=== PATIENT | female | born 1985 | race Caucasian/White ===

== ENCOUNTER 2021-03-03 19:26 | Emergency (ER) | payer OTHER, SELFPAY ==
[2021-03-03 19:30] VITALS: BP 141/95; PULSE 98; RESP 18; TEMP 36.6; O2SAT 100
--- NOTE | 2021-03-03 19:39 | ED.EAR ---
HPI - Ear Problem General Chief complaint: Ear Stated complaint: Ear Pain Time Seen by Provider: 03/03/21 19:39 Source: patient and RN notes reviewed History of Present Illness HPI Narrative: Patient is a 35-year-old female who presents the urgent care with complaints of muffled hearing and left ear pain. Patient states that she does have a bad tooth on the left upper and lower which could be relating to some of the pain. Patient states that she is broken the teeth many moons ago and has not gotten them repaired. Patient denies of any fevers but states she has had some chills. States that she has been taking Tylenol and ibuprofen for the pain. Denies of any nausea or vomiting or drainage from the ear. No other acute complaints. No acute distress noted. Patient aware of the plan of care. Some parts of this dictation were generated by voice recognition software and may contain typographical and/or grammatical inaccuracies. Related Data Home Medications Medication Instructions Recorded Confirmed buspirone [BuSpar] 30 mg PO BID 03/03/21 03/03/21 lamotrigine [Lamictal] 100 mg PO BID 03/03/21 03/03/21 methadone 140 mg PO BID 03/03/21 03/03/21 Allergies Allergy/AdvReac Type Severity Reaction Status Date / Time No Known Allergies Allergy Verified 03/03/21 19:37 Review of Systems Review of Systems: Narrative: CONSTITUTIONAL: Denies fever, chills, or sweats. EYES: Denies visual changes, redness, or discharge. ENT: Reports of painful upper and left tooth ache and left otalgia with decreased hearing CARDIOVASCULAR: Denies chest pain, palpitations, or edema. RESPIRATORY: Denies cough or dyspnea. GASTROINTESTINAL: Denies abdominal pain, nausea, vomiting, or diarrhea. GENITOURINARY: Denies dysuria or hematuria. SKIN: Denies rash or itching. MUSCULOSKELETAL: Denies back pain, joint pain, or myalgia. NEUROLOGIC: Denies headache, numbness, or weakness. All other systems reviewed are negative, except as documented in HPI. PMFSH Comments At the time of my signature, I reviewed and agree with the nursing past medical, surgical, social, and family history. There is no relevant family history pertinent to the patient complaint. Exam Narrative: Exam Narrative: GENERAL: This is a well-nourished, well-developed patient, in no apparent distress. HEAD: normocephalic, atraumatic. EYES: PERRL. Sclera clear/white. Vision is grossly intact. EARS: External ears normal, auditory canals clear and without drainage, right TMs normal without perforation. Unable to visualize left TM due to cerumen impaction hearing grossly intact. NOSE: External nose normal with no obvious nasal discharge, nares without redness, no rhinorrhea. THROAT: Mucous membranes moist, posterior pharynx clear. DENTAL: Left lower first molar with mild erythema/dental abscess and avulsed cusp. Left upper first premolar was large notable caries NECK: Neck supple, non-tender without lymphadenopathy, masses or thyromegaly. CARDIOVASCULAR: Regular rate and rhythm without murmurs, gallops, or rubs. RESPIRATORY: Clear to auscultation. Breath sounds equal bilaterally. No wheezes, rales, or rhonchi. SKIN: warm, intact with no suspicious lesions or rash, good texture and turgor. NEURO: awake, alert, and oriented to person, place and time. There were no obvious focal neurologic abnormalities. EXTREMITIES: No clubbing, cyanosis, or edema. Course Vital Signs Vital signs: Vital Signs Temperature 97.8 F 03/03/21 19:30 Pulse Rate 98 03/03/21 19:30 Respiratory Rate 18 03/03/21 19:30 Blood Pressure 141/95 H 03/03/21 19:30 Pulse Oximetry 100 03/03/21 19:30 Temperature 97.8 F 03/03/21 19:30 Pulse Rate 98 03/03/21 19:30 Respiratory Rate 18 03/03/21 19:30 Blood Pressure 141/95 H 03/03/21 19:30 Pulse Oximetry 100 03/03/21 19:30 Reviewed-patient is informed that they may have pre-hypertension or hypertension based on a blood pressure reading in the department. I
== END 2021-03-03 19:55 | disposition home or self-care (01) ==
PROVIDERS: Emergency Provider Nurse Practitioner Family
DX: K04.7 Periapical abscess without sinus (principal); H61.22 Impacted cerumen, left ear; F41.9 Anxiety disorder, unspecified; F31.9 Bipolar disorder, unspecified
CPT/HCPCS: 69209; 99213; G0463

== ENCOUNTER 2024-12-23 12:34 | Emergency (ER) | payer OTHER, SELFPAY ==
[2024-12-23 12:46] VITALS: BP 153/85; PULSE 90; RESP 16; TEMP 37.1; O2SAT 99
--- OUTSIDE RECORDS SUMMARY | 2024-12-23 12:46 | XMS_ITS | Clinical Summary ---
Author Organization [facility] Address [address] [place] [address] Phone Care Team Providers Care Wound Care Specialist Name Role Phone Provider, None Primary Care Provider Unavailabl e Allergies No known active allergies Medications divalproex (DEPAKOTE ER) 500 MG TABLET SR 24 HR Take 500 mg by mouth 2 times daily. Active methadone (DOLOPHINE) 10 MG Tablet Take 130 mg by mouth daily. Active busPIRone (BUSPAR) 15 MG Tablet TK 1 T PO TID 2 10/12/2018 Active ibuprofen (MOTRIN) 600 MG Tablet Take 1 Tab by mouth every 8 hours. 30 Tab 10/15/2018 Active lamoTRIgine (LAMICTAL) 150 MG Tablet Take 150 mg by mouth daily. Active Social History Tobacco Use Types Packs/Day Years Used Date Smoking Tobacco: Former Cigarettes Smokeless Tobacco: Never Alcohol Use Standard Drinks/Week Comments No 0 (1 standard drink = 0.6 oz pur e alcohol) Comments No Sex and Gender Information Value Date Recorded Sex Assigned at Not on file Legal Sex Female 8:42 PM CDT Gender Identity Not on file Sexual Orientation Not on file Last Filed Vital Signs Vital Sign Reading Time Taken Comments Blood Pressure 122/76 02/17/2020 11:45 PM CDT Pulse 74 02/17/2020 11:45 PM CDT Temperature 37.3 C (99.1 F) 02/17/2020 7:45 PM CDT Respiratory Rate 8 02/17/2020 11:45 PM CDT Oxygen Saturation 99% 02/17/2020 11:45 PM CDT Inhaled Oxygen Concentration - - Weight 95.3 kg (210 lb) 02/17/2020 7:45 PM CDT Height 172.7 cm (5' 8 ) 02/17/2020 7:45 PM CDT Body Mass Index 31.93 02/17/2020 7:45 PM CDT Plan of Treatment Health Maintenance Due Date Last Done Comments Hepatitis C Virus (HCV) Screening 1983 TdaP Immunization 1983 Hepatitis B Immunization (1 of 3 - 19+ 3-dose series) 2002 Pap Smear 2004 Cervical Cancer Screening (CCS) 2013 HPV/Cotest 2013 Discussion re Starting/Frequ ency of Mammograms 2023 Influenza Immunization (#1) 2024 SARS-COV-2 Immunization ( season) 2024 Respiratory Syncytial Virus (RSV) Immunization (Adult) (1 - 1-dose 75+ series) 2058 Meningococcal Immunization (ACWY) Aged Out No longer eligible based on patient's age to complete this topic Pneumococcal Immunization Combined Aged Out No longer eligible based on patient's age to complete this topic Rotavirus Immunization Aged Out No lo nger eligible based on patient's age to complete this topic Insurance MEDICAID [employer] Care Teams Wound Care Specialist Relationship Specialty Start Date End Date Provider, None [place] PCP - General 06/25/16
--- OUTSIDE RECORDS SUMMARY | 2024-12-23 12:46 | XMS_ITS | Clinical Summary ---
Author Organization [facility] Address [facility] [place] [address] Care Team Providers Care Auto Wrecker Name Role Phone None, Provider MD Primary Care Provider Unavaila ble Medications predniSONE (DELTASONE) 20 MG tablet Take 2 tablets (40 mg total) by mouth daily for 6 days. 12 tablet 12/17/2024 Active albuterol sulfate HFA 108 (90 Base) MCG/ACT inhaler Inhale 2 puffs into the lungs every 4 (four) hours as needed for Wheezing. Use with a spacer. 18 g 12/17/2024 Active Encounters Date Type Department Care Team Description 12/17/2024 1:50 PM PRINCIPAL ANDROID DEVELOPER - 12/17/2024 5:50 PM PRINCIPAL ANDROID DEVELOPER Emergency [facility] Emergency Room [address] [place] [address] Deanne Tripp MD Cough Discharge Disposition: Home or Self Care (Routine Discharge) 12/17/2024 Travel from Last 3 Months Social History Tobacco Use Types Packs/Day Years Used Date Smoking Tobacco: Never Assessed Comments Unknown Sex and Gender Information Value Date Recorded Sex Assigned at Female 12/17/2024 12:47 PM PRINCIPAL ANDROID DEVELOPER Legal Sex Female 2:06 PM CDT Gender Identity Not on file Sexual Orientation Not on file Last Filed Vital Signs Vital Sign Reading Time Taken Comments Blood Pressure 142/90 12/17/2024 1:55 PM PRINCIPAL ANDROID DEVELOPER Pulse 78 12/17/2024 1:55 PM PRINCIPAL ANDROID DEVELOPER Temperature 36.8 C (98.2 F) 12/17/2024 1:55 PM PRINCIPAL ANDROID DEVELOPER Respiratory Rate 12 12/17/2024 1:55 PM PRINCIPAL ANDROID DEVELOPER Oxygen Saturation 97% 12/17/2024 1:55 PM PRINCIPAL ANDROID DEVELOPER Inhaled Oxygen Concentration - - Weight 77.1 kg (170 lb) 12/17/2024 1:55 PM PRINCIPAL ANDROID DEVELOPER Height 172.7 cm (5' 8 ) 12/17/2024 1:55 PM PRINCIPAL ANDROID DEVELOPER Body Mass Index 25.85 12/17/2024 1:55 PM PRINCIPAL ANDROID DEVELOPER Plan of Treatment Health Maintenance Due Date Last Done Comments Cervical Cancer Screening Pa p Smear (Age 30 to 64) Every 3 Years 1983 Annual Physical 1986 Hepatitis C 2001 DTaP, Tdap and Td Vaccines ( 1 - Tdap) 2002 Hepatitis B Vaccines (1 of 3 - 19+ 3-dose series) 2002 Cervical Cancer Screening Pa p with HPV Testing (Age 30 to 64) Every 5 Years 2013 Cervical Cancer Screening with HPV 2013 Mammogram Screening 2023 COVID-19 Vaccine (2023-2 5 season) 2024 Influenza Adult (#1) 2024 HPV Vaccines Aged Out No longer eligi ble based on patient's age to complete this topic Meningococcal B Vaccine Aged Out No l onger eligible based on patient's age to complete this topic Meningococcal Vaccine Aged Out No james alexx eligible based on patient's age to complete this topic Pneumococcal Vaccine: Pediat rics (0 to 5 Years) and At-Risk Patients (6 to 64 Years) Aged Out No longer eligible b ased on patient's age to complete this topic RSV Immunizations Under 20 Months Aged Out No longer eligible based on patient's age to complete this topic Procedures Procedure Name Priority Date/Time Associated Diagnosis Comments XR CHEST PA+LAT STAT 12/17/2024 4:21 PM PRINCIPAL ANDROID DEVELOPER INFLUENZA A & B STAT 12/17/2024 4:14 PM PRINCIPAL ANDROID DEVELOPER CORONAVIRUS (COVID 19) STAT 12/17/2024 4:14 PM PRINCIPAL ANDROID DEVELOPER from Last 3 Months Results * XR CHEST PA+LAT (12/17/2024 4:21 PM PRINCIPAL ANDROID DEVELOPER) Anatomical Region Laterality Modality Chest Radiographic Gretel ging 12/17/2024 4:35 PM PRINCIPAL ANDROID DEVELOPER Impressions 12/17/2024 4:38 PM PRINCIPAL ANDROID DEVELOPER Impression: No acute findings. Referred By: Interpreted By: Len Shane MD, 12/17/2024 4:35 PM Narrative 12/17/2024 4:38 PM PRINCIPAL ANDROID DEVELOPER [address] [address] Examination: Chest 2 View History: Cough DATE/TIME: 12/17/2024 4:11 PM Comparison: None Technique: PA and lateral views were obtained. Findings: Heart size, mediastinal contours and pulmonary vasculature are within normal limits. No pulmonary consolidation, pleural effusion or pneumothorax. No acute osseous abnormality. Procedure Note Len Shane MD - 12/17/[address] [address] Examination: Chest 2 View History: Cough DATE/TIME: 12/17/2024 4:11 PM Comparison: None Technique: PA and lateral views were obtained. Findings: Heart size, mediastinal contours and pulmonary vasculature arewithin normal limits. No pulmonary consolidation, pleural effusion orpneumothorax. No acute osseous abnormality. Impression: No acute findings. Referred By: Interpreted By: Len Shane MD, 12/17/2024 4:35 PM Deanne Tripp MD GENERAL IMAGING Final Result * CORONAVIRUS (COVID-19) MOLECULAR (12/17/2024 4:14 PM PRINCIPAL ANDROID DEVELOPER) CORONAVIRUS SARS COV 2 RNA NEGATIVE NEGATIVE 12/17/2024 5:32 PM PRINCIPAL ANDROID DEVELOPER [facility] Comment: NEGATIVE RESULTS DO NOT RULE OUT COVID 19 AND SHOULD NOT BE USED THE SOLE BASIS FOR TREATMENT OR PATIENT MANAGEMENT DECISIONS, INCLUDING INFECTION CONTROL DECISIONS. NEGATIVE RESULTS SHOULD BE CONSIDERED IN THE CONTEXT OF A PATIENT'S RECENT EXPOSURES, HISTORY AND THE PRESENCE OF CLINICAL SIGNS AND SYMPTOMS CONSISTENT WITH COVID 19. THE ID NOW COVID-19 2.0 TEST HAS BEEN AUTHORIZED BY THE FDA UNDER EAU FOR USE BY AUTHORIZED LABORATORIES. PERFORMED BY NUCLEIC ACID AMPLIFICATION FOR MOLECULAR QUALITATIVE DETECTION OF SARS-COV-2. SPECIMEN TYPE NASAL 12/17/2024 4:38 PM PRINCIPAL ANDROID DEVELOPER [facility] NASOPHARYNGEAL SWAB / Unknown 12/17/2024 4:14 PM PRINCIPAL ANDROID DEVELOPER Deanne Tripp MD MICROBIOLOGY - GENERAL ORDER AVILA Final Result Performing Organization Address City/[facility] Co de Phone Number [facility] [address] [place] [address], [place] [phone] * INFLUENZA A & B (12/17/2024 4:14 PM PRINCIPAL ANDROID DEVELOPER) SPECIMEN TYPE NASOPHARYNX 12/17/2024 4:38 PM PRINCIPAL ANDROID DEVELOPER [facility] INFLUENZA A NEGATIVE NEGATIVE 12/17/2024 5:32 PM PRINCIPAL ANDROID DEVELOPER [facility] INFLUENZA B NEGATIVE NEGATIVE 12/17/2024 5:32 PM PRINCIPAL ANDROID DEVELOPER [facility] NASOPHARYNGEAL SWAB / Unknown 12/17/2024 4:14 PM PRINCIPAL ANDROID DEVELOPER Deanne Tripp MD MICROBIOLOGY - GENERAL ORDER AVILA Final Result Performing Organization Address [facility] Co de Phone Number [facility] [address] [place] [address], [place] [phone] from Last 3 Months Insurance [employer] Care Teams Auto Wrecker Relationship Specialty Start Date End Date None, Provider, PCP - General UNKNOWN PHYSICIAN SPECIALTY 03/12/23
--- NOTE | 2024-12-23 12:58 | ED.URI ---
HPI - URI/Sore Throat General Chief Complaint: Upper Respiratory Infection Stated Complaint: Chest congestion/fatigue/cough Source: patient Mode of arrival: ambulatory Limitations: no limitations History of Present Illness HPI Narrative: 39-year-old female presented for complaint of nonproductive cough and fatigue for 2 weeks. States last week she was seen at an urgent care and given a steroid and albuterol. She will complete the steroid today. Endorses the albuterol does not help much. Endorses some shortness of breath with exertion. Denies nausea, vomiting, diarrhea, fevers. History of pneumonia. Quit smoking but vapes. Related Data Home Medications ?Medication ?Instructions ?Recorded ?Confirmed ?Last Taken ?Type buspirone 30 mg tablet 30 mg PO BID 03/03/21 03/03/21 Unknown History lamotrigine 100 mg tablet 100 mg PO BID 03/03/21 03/03/21 Unknown History (Lamictal) albuterol sulfate 90 mcg/actuation inhalation 12/23/24 Unknown History aerosol inhaler prednisone 20 mg tablet mg 12/23/24 Unknown History Allergies Allergy/AdvReac Type Severity Reaction Status Date / Time No Known Allergies Allergy Verified 12/23/24 12:46 Review of Systems Review of Systems: CONSTITUTIONAL: Denies body aches, fever, chills, or sweats. EYES: Denies visual changes, redness, or discharge. ENT: Denies rhinorrhea, congestion, sore throat, or otalgia. CARDIOVASCULAR: Denies chest pain, palpitations, or edema. RESPIRATORY: Reports cough, sob, wheezing. GASTROINTESTINAL: Denies abdominal pain, nausea, vomiting, or diarrhea. GENITOURINARY: Denies dysuria or hematuria. SKIN: Denies rash, itching, or wounds. MUSCULOSKELETAL: Denies back pain, joint pain, or myalgia. NEUROLOGIC: Denies headache, numbness, tingling, or weakness. PSYCH: Denies depression or anxiety. All systems reviewed & are unremarkable except as noted in HPI and below PMFSH Comments At time of signature, I have reviewed and agree with nursing past medical, surgical, social and family history unless otherwise noted. Please see nursing chart for further information. There is no relevant family history pertinent to the presenting complaint Exam Narrative: GENERAL: Well-appearing, in no acute distress. EYES: EOMI. No redness or drainage. Conjunctivae normal. ENT: Mucous membranes pink and moist. No rhinorrhea. TMs normal bilaterally. Throat normal. Uvula midline. NECK: Normal AROM. Supple. CHEST: No respiratory distress. faint wheeze to right middle lung otherwise clear HEART: Regular rate and rhythm. No murmur appreciated. ABDOMEN: Soft, nontender, nondistended, normal active bowel sounds. EXTREMITIES: Normal range of motion. No edema. SKIN: Warm, dry Capillary refill normal. Normal skin turgor. NEURO: Alert and oriented x3. Gait steady. PSYCH: Normal affect. Course Course Emergency Course: Patient is aware of diagnosis, understands and agrees to treatment plan. Anticipatory guidance given. Patient agrees to follow-up as directed and is aware of reasons to seek care at the emergency department. Portions of this record may have been created with voice recognition software Level of Care: Express Care Visit Vital Signs Vital signs: Vital Signs Temperature 98.8 F 12/23/24 12:46 Pulse Rate 90 12/23/24 12:46 Respiratory Rate 16 12/23/24 12:46 Blood Pressure 153/85 H 12/23/24 12:46 Pulse Oximetry 99 12/23/24 12:46 Oxygen Delivery Room Air 12/23/24 12:46 Temperature 98.8 F 12/23/24 12:46 Pulse Rate 90 12/23/24 12:46 Respiratory Rate 16 12/23/24 12:46 Blood Pressure 153/85 H 12/23/24 12:46 Pulse Oximetry 99 12/23/24 12:46 Oxygen Delivery Room Air 12/23/24 12:46 MDM - URI/Sore Throat MDM Narrative Medical decision making narrative: Discussed physical exam findings. Advised supportive measures and signs/symptoms to go to the ER. Pt is appropriate for outpt treatment and f/u. Differential Diagnosis Differential diagnosis: Likely upper respiratory infection, sinusitis, viral infection, bronchitis, influenza, pharyngitis and other ( pneumonia) Discharge Plan Discharge Clinical Impression: Bronchitis Patient Disposition: Home, Self-Care Condition: Stable Instructions: Antibiotic Form, Acute Bronchitis (ED), Pneumonia (ED) Additional Instructions: Acute bronchitis can be contagious because it is usually caused by infection with a virus or bacteria. It is usually for a few days but you can be contagious for up to one week. Avoid crowds until you do not have a fever and symptoms are improved Take medication as directed Recommend Flonase spray and Zyrtec (or Claritin/Gissell) if you have nasal congestion over the counter Cough syrup may cause drowsiness; avoid driving or take it at night time. Tylenol 1000mg every 8 hours as needed for pain Rest, fluids, and increase humidity of the air at home. Follow up with your primary care provider as needed in 1 week Go to the ER for worsening symptoms or concerns Patient Language: [place] Prescriptions: New benzonatate 200 mg capsule 200 mg PO TID PRN (Reason: cough) Qty: 20 0RF azithromycin [Zithromax Z-Santiago] 250 mg tablet See Rx Instructions .ROUTE .COMPLEX Qty: 6 0RF Rx Instructions: For 250 mg dose pack: take 500 mg today (day 1), then 250 mg for 4 days (days 2-5) No Action prednisone 20 mg tablet albuterol sulfate 90 mcg/actuation HFA aerosol inhaler INHALATION buspirone [BuSpar] 30 mg Tablet 30 mg PO BID lamotrigine [Lamictal] 100 mg Tablet 100 mg PO BID Follow-up/Referrals: PHYSICIAN,STONE PRODUCT FABRICATOR [Primary Care Provider] - Time of Disposition: 13:12
== END 2024-12-23 13:16 | disposition home or self-care (01) ==
PROVIDERS: Emergency Provider Nurse Practitioner Family
DX: J40 Bronchitis, not specified as acute or chronic (principal); F31.9 Bipolar disorder, unspecified; F41.9 Anxiety disorder, unspecified
CPT/HCPCS: 99213; G0463